=== PATIENT | female | born 2000 | race Hispanic/Latino ===

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

== ENCOUNTER 2018-11-21 14:17 | Emergency (ER) | payer MEDICAID, OTHER ==
[2018-11-21 14:18] VITALS: BMI 28.2
[2018-11-21 14:46] VITALS: RESP 18
--- NOTE | 2018-11-21 16:18 | ED PDOC ---
Lower Extremity Pain/Injury Time Seen by Provider: 11/21/18 15:03 Chief Complaint (Nursing): Lower Extremity Problem/Injury Chief Complaint (Provider): Lower Extremity Problem/Injury History Per: Patient History/Exam Limitations: no limitations Onset/Duration Of Symptoms: Days (3) Additional Complaint(s): 18 y/o female w/ hx of asthma presents to the ED complaining of bilateral ankle swelling for the past 3 days. Patient states she been having intermittent bilateral ankle swelling for the past year and half. It occurs 3 4 times a month and it self-alleviates. She reports a couple of episode of intermittent chest pressure while at work 1 week ago and has not occurred since. Patient arabella es pain, joint pain, rash, family history autoimmune disease, recent travels, history of PE, DVT, history of malignancy, or any control use. PMD: none provided Past Medical History Reviewed: Historical Data, Nursing Documentation, Vital Signs Vital Signs: Last Vital Signs Temp 98.7 F 11/21/18 14:43 Pulse 64 11/21/18 14:43 Resp 18 11/21/18 14:43 BP 124/76 11/21/18 14:43 Pulse Ox 100 11/21/18 14:43 - Medical History PMH: Asthma Denies: Chronic Kidney Disease - Family History Family History: States: Unknown Family Hx - Home Medications Home Medications: Ambulatory Orders Medication Instructions Recorded Albuterol HFA [Ventolin HFA 90 2 puff IH Q4H PRN 02/05/17 mcg/actuation (8 g)] - Allergies Allergies/Adverse Reactions: Allergies Allergy/AdvReac Type Severity Reaction Status Date / Time No Known Allergies Allergy Verified 11/21/18 14:43 Wells Criteria for PE - Wells Criteria for Pulmonary Embolism Clinical Signs and Symptoms of DVT: No P.E is #1 Diagnosis, or Equally Likely: No Heart Rate >100: No Immobilization at least 3 days;Surgery previous 4 weeks: No Previous, objectively diagnosed PE or DVT: No Hemoptysis: No Malignancy w/treatment within 6 months, or palliative: No Total Score: 0 Review of Systems ROS Statement: Except As Marked, All Systems Reviewed And Found Negative Cardiovascular: Positive for: Chest Pain Musculoskeletal: Positive for: Other ((-) joint pain. (+) swelling. ). Negative for: Leg Pain, Foot Pain Skin: Negative for: Rash Physical Exam - Reviewed Nursing Documentation Reviewed: Yes Vital Signs Reviewed: Yes - Physical Exam Appears: Positive for: No Acute Distress Cardiovascular/Chest: Positive for: Regular Rate, Rhythm Respiratory: Positive for: Normal Breath Sounds Extremity: Positive for: Normal ROM (with flexion and extension bilateral knees and toes. ), Capillary Refill (less than 2. DP 2+.), Other (trace edema bilateral ankles, no eccyhmosis, no erythema. ). Negative for: Calf Tenderness, Deformity Neurological/Psych: Positive for: Awake, Alert, Oriented (x3) - Laboratory Results Result Diagrams: 11/21/18 16:15 11/21/18 16:15 - ECG O2 Sat by Pulse Oximetry: 100 Medical Decision Making Medical Decision Making: Time:154 Initial Plan: -CMP -CBC -D-Dimer -Urine -US 1626: B/L Lower extremity U/S: FINDINGS: COMMON FEMORAL VEIN: Right CFV: Unremarkable. Left CFV: Unremarkable. SUPERFICIAL FEMORAL VEIN: Right SFV: Unremarkable. Left SFV: Unremarkable. POPLITEAL VEIN: Right Popliteal: Unremarkable. Left Popliteal: Unremarkable. POSTERIOR TIBIAL VEIN: Right PTV: Unremarkable. Left PTV: Unremarkable. OTHER FINDINGS: None. IMPRESSION: No evidence of deep venous thrombosis. 1650: D-dimer is mildly elevated to 276. Other labs unremarkable. Patient recommended to return to ER in 1 week for repeat ultrasound and to follow up with PMD for further evaluation of chronic swelling. Patient demonstrated understanding. Stable for d/c home. Scribe Attestation: Documented by Arianne Davidson, acting as a scribe for Katheryn Lock. Provider Scribe Attestation: All medical record entries made by the Scribe were at my direction and personally dictated by me. I have reviewed the chart and agree that the record accurately reflects my personal performance of the history, physical exam, medical decision making, and the department course for this patient. I have also personally directed, reviewed, and agree with the discharge instructions and disposition. Disposition - Clinical Impression Clinical Impression: Swollen ankles - Patient ED Disposition Is Patient to be Admitted: No Counseled Patient/Family Regarding: Studies Performed, Need For Followup - Disposition Referrals: [facility] [Outside] Disposition: Routine/Home Disposition Time: 16:58 Condition: STABLE Additional Instructions: Follow up with your primary care doctor for further work-up of leq swelling. Return to ER in one week for repeat ultrasound or sooner if your symptoms worsen. Elevate your legs whenever possible to help with swelling. Instructions: Dependent Edema (DC) Forms: [facility] (American) Print Language: SYRIAC
--- NOTE | 2018-11-21 16:30 | US ---
Date of service: 11/21/2018 PROCEDURE: Bilateral lower extremity venous duplex Doppler. HISTORY: rule out dvt COMPARISON: None available. TECHNIQUE: Bilateral common femoral, superficial femoral, popliteal and posterior tibial veins were evaluated. Flow was assessed with color Doppler, compressibility, assessment of phasic flow and augmentation response. FINDINGS: COMMON FEMORAL VEIN: Right CFV: Unremarkable. Left CFV: Unremarkable. SUPERFICIAL FEMORAL VEIN: Right SFV: Unremarkable. Left SFV: Unremarkable. POPLITEAL VEIN: Right Popliteal: Unremarkable. Left Popliteal: Unremarkable. POSTERIOR TIBIAL VEIN: Right PTV: Unremarkable. Left PTV: Unremarkable. OTHER FINDINGS: None. IMPRESSION: No evidence of deep venous thrombosis.
[2018-11-21 16:32] LABS: BASO # 0.1 K/uL (0.0-0.2); BASO % 1.2 % (0.0-2.0); EOS # 0.2 K/uL (0.0-0.7); EOS % 5.2 % (0.0-4.0); HEMOGLOBIN 13.9 g/dL (12.0-16.0); LYMPH # 1.3 K/uL (1.0-4.3); LYMPH % 28.9 % (20.0-40.0); MEAN CELL VOLUME 91.2 fl (81.0-99.0); MEAN CORPUSCULAR HEMOGLOBIN 30.6 pg (27.0-31.0); MEAN CORPUSCULAR HGB CONC 33.5 g/dL (33.0-37.0); MEAN PLATELET VOLUME 8.7 fl (7.2-11.7); MONO # 0.9 K/uL (0.0-0.8); MONO % 18.7 % (0.0-10.0); NEUT # 2.1 K/uL (1.8-7.0); NRBC % 0.1 % (0.0-0.0); RBC 4.53 Mil/uL (3.80-5.20); RED CELL DISTRIBUTION WIDTH 13.1 % (11.5-14.5); WHITE BLOOD COUNT 4.6 K/uL (4.8-10.8)
[2018-11-21 16:41] LABS: ALB/GLOB RATIO 1.2 (1.0-2.1); ALBUMIN 4.2 g/dL (3.5-5.0); ALT/SGPT 24 U/L (9-52); AST/SGOT 33 U/L (14-36); BLOOD UREA NITROGEN 14 mg/dl (7-17); CALCIUM 9.1 mg/dL (8.4-10.2); GFR NON-AFRICAN AMERICAN > 60
[2018-11-21 16:55] VITALS: BP 123/77; PULSE 54; TEMP 98.4
[2018-11-22 01:22] VITALS: O2SAT 100
== END 2018-11-21 16:58 | disposition home or self-care (01) ==
LOC: H.ER 14:17
DX: M79.89 Other specified soft tissue disorders (principal); M25.472 Effusion, left ankle; M25.471 Effusion, right ankle; J45.909 Unspecified asthma, uncomplicated